=== PATIENT | male | born 1990 | race African-American/Black ===

== ENCOUNTER 2019-10-15 20:34 | Observation (INO) | payer MEDICAID ==
--- NOTE | 2019-10-15 21:51 | ED ---
Influenza-Like Illness - HPI Summary HPI Summary: 29 year old M arriving via private car to [facility] complains of worsening intermittent cough, chest pain, fever, chills, diaphoresis, decreased appetite x2 weeks. Patient states he stayed home Sun 10/09 to 10/11. He was doing better 10/12 and 10/13. Patient states he started doing worse on Thu and today . He vomited last night. He states he coughed pink, frothy sputum today 1600. The patient rates the pain 6/10 in severity. Symptoms aggravated by nothing. Symptoms alleviated by nothing. He has not been around anyone sick. No recent travel. Current smoker. Uses marijuana. No hx IV drug use. Home Medications Medication Instructions Recorded Confirmed Type NK [No Home Medications Reported] 10/16/19 10/16/19 History - History of Current Complaint Chief Complaint: EDUpperRespComplaint Time Seen by Provider: 10/15/19 21:48 Hx Obtained From: Patient Onset/Duration: Lasting Weeks - 2.5, Still Present Severity: Moderate - 6/10 - Allergy/Home Medications Allergies/Adverse Reactions: Allergies Allergy/AdvReac Type Severity Reaction Status Date / Time No Known Allergies Allergy Verified 10/15/19 20:44 Home Medications: Home Medications NK [No Home Medications Reported] 10/16/19 [History Confirmed 10/16/19] PMH/Surg Hx/FS Hx/Imm Hx Cardiovascular History: Denies: Hx Hypertension Psychiatric History: Reports: Hx Substance Abuse - synthetic marijuana - Surgical History Surgical History: None Infectious Disease History: No Infectious Disease History: Denies: Traveled Outside the [place] in Last 30 Days - Family History Known Family History: Positive: Diabetes - grandmother borderline diabetes - Social History Hx Substance Use: Yes Substance Use Type: Reports: Marijuana Hx Tobacco Use: Yes Smoking Status (MU): Current Some Day Smoker Review of Systems Positive: Fever, Chills, Skin Diaphoresis Positive: Chest Pain Positive: Cough Positive: Vomiting, Other - decreased appetite All Other Systems Reviewed And Are Negative: Yes Physical Exam - Summary Physical Exam Summary: Constitutional: Well-developed, Well-nourished, Alert. (-) Distressed Skin: Warm, Dry HENT: Normocephalic; Atraumatic Eyes: Conjunctiva normal Neck: Musculoskeletal ROM normal neck. (-) JVD, (-) Stridor, (-) Nuchal rigidity Cardio: Rhythm regular, tachycardic, Heart sounds normal; Intact distal pulses; Radial pulses are 2+ and symmetric. (-) Murmur Pulmonary/Chest wall: Effort normal. (-) Respiratory distress, (-) Wheezes, bilateral rhonchi, dry cough Abd: Soft, (-) tenderness, (-) Distension, (-) Guarding, (-) Rebound Musculoskeletal: (-) Edema Lymph: (-) Cervical adenopathy Neuro: Alert, Oriented x3 Psych: Mood and affect Normal Triage Information Reviewed: Yes Vital Signs On Initial Exam: Initial Vitals Temp Pulse Resp BP Pulse Ox 101.5 F 101 16 119/77 95 10/15/19 20:42 10/15/19 20:42 10/15/19 20:42 10/15/19 20:42 10/15/19 20:42 Vital Signs Reviewed: Yes Procedures - Sedation Patient Received Moderate/Deep Sedation with Procedure: No Diagnostics - Vital Signs Vital Signs Temp Pulse Resp BP Pulse Ox 10/15/19 20:42 101.5 F 101 16 119/77 95 - Laboratory Result Diagrams: 10/15/19 22:32 10/15/19 22:32 Lab Statement: Any lab studies that have been ordered have been reviewed, and results considered in the medical decision making process. - Radiology CXR Radiology Interpretation Completed By: ED Physician - diffuse air space opacities PENDING OFFICIAL REPORT - CT CHEST CT Interpretation Completed By: Radiologist Summary of CT Findings: IMPRESSION: Multilobar bilateral airspace disease as above likely representing pneumonia. ED physician has reviewed this report. Flu Symptom Course/Dx - Course Course Of Treatment: 29 y/o male p/w cough, fever, feeling unwell. - Flu A+, CXR multiple nodular opacities concerning for multifocal pneumonia. CT confirms multifocal pneumonia. Patient started on ceftriaxone, azithromycin. Tamiflu deferred given chronicity of symptoms. LA normal. Given IVF and tylenol for fever. Regarding CP likely 2/2 PNA, troponin negative x1, EKG non ischemic, heart score: 1. Patient admitted to the hospital. - Diagnoses Provider Diagnoses: Pneumonia, Influenza - Physician Notifications Discussed Care Of Patient With: Grace Mays Time Discussed With Above Provider: 23:04 Instructed by Provider To: Other - Dr. Davon hospitalist agrees to admit patient Discharge ED - Sign-Out/Discharge Documenting (check all that apply): Patient Departure - Discharge Plan Condition: Stable Disposition: ADMITTED TO [facility] Referrals: No Primary Care Phys,NOPCP [Primary Care Provider] - - Billing Disposition and Condition Condition: STABLE Disposition: Admitted to [facility] - Attestation Statements Document Initiated by Nedibe: Yes Documenting Scribe: Myrna Catherine Provider For Whom Randi is Documenting (Include Credential): Karlee Beltran MD Scribe Attestation: Myrna Mejia, scribed for Karlee Beltran MD on 10/16/19 at 0223. Scribe Documentation Reviewed: Yes Provider Attestation: The documentation as recorded by the Myrna miller accurately reflects the service I personally performed and the decisions made by Karlee malagon MD Status of Scribe Document: Viewed
[2019-10-15 22:16] LABS: Influenza B Molecular POSITIVE (Negative)
[2019-10-15] MEDS ORDERED: cefTRIAXone(*) 1 GM in NS 0.9% 50 ML* 50 ML IVPB ONE (22:27)
[2019-10-15] MEDS ORDERED: Azithromycin 500 mg/250 ml NS 500 MG/250 ML BAG IVPB ONE (22:27)
[2019-10-15] MEDS ORDERED: Acetaminophen TAB* 325 MG PO ONE (22:29)
[2019-10-15] MEDS ORDERED: Ketorolac INJ* 30 MG/ML 1 ML VIAL IV ONE (22:29)
[2019-10-15] MEDS ORDERED: NS 0.9% 1000 ML** 1,000 ML IV ONE ×2 (22:29→23:35)
[2019-10-15 22:42] LABS: Hematocrit 40 % (42-52); Hemoglobin 13.8 g/dL (14.0-18.0); Mean Corpuscular HGB Conc 34 g/dL (31-36); Mean Corpuscular Hemoglobin 29 pg (27-31); Mean Corpuscular Volume 84 fL (80-94); Mean Platelet Volume 8.2 fL (7.4-10.4); Platelet Count 259 10^3/uL (150-450); Red Blood Count 4.78 10^6 /uL (4.18-5.48); Red Cell Distribution Width 15 % (10-15); White Blood Count 6.5 10^3/uL (3.5-10.8)
[2019-10-15 22:57] LABS: ABS Lymphocytes 0.4 10^3/ul (1.0-4.8); ABS Monocytes 1.3 10^3/ul (0-0.8); ABS Neutrophils 4.8 10^3/ul (1.5-7.7); Albumin 3.8 g/dL (3.2-5.2); BUN/Creatinine Ratio 7.8 (8-20); Calcium 8.9 mg/dL (8.6-10.3); EGFR African American 89.7 (>60); EGFR Non-African American 74.2 (>60); Eosinophil % 0.1 %; Globulin 3.9 g/dL (2-4); Lymphocyte % 5.5 %; Potassium 3.6 mmol/L (3.5-5.0); Total Bilirubin 0.4 mg/dL (0.2-1.0); Total Protein 7.7 g/dL (6.4-8.9)
[2019-10-16 00:05] LABS: Troponin I 0.01 ng/mL (<0.03)
[2019-10-16] MEDS ORDERED: guaiFENesin 100 mg/5 ml LIQ unit dose cup PO PRN (00:10)
[2019-10-16] MEDS ORDERED: NS 0.9% 1000 ML** 1,000 ML IV SCH (00:15)
[2019-10-16] MEDS ORDERED: PROCHLORPERAZINE INJ 5 MG/ML 2 ML VIAL IV PRN (00:16)
--- NOTE | 2019-10-16 02:02 | HP ---
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 PROVIDER: Fan Broussard NP ATTENDING PHYSICIAN: Dr. Mays.* (DICTATED BY FAN BROUSSARD np) CHIEF COMPLAINT: Shortness of breath and coughing. HISTORY OF PRESENT ILLNESS: This is a 29-year-old male with no significant past medical history, who came to the emergency room on 10/15/19 after experiencing 2 weeks of not feeling well, started with intermittent cough, chest pain, fever, chills, diaphoresis, and decreased appetite. Over the past 2 weeks, he was starting to feel slightly better between 10/12/19 and 10/13/19, then worsened on the next day of 10/14/19. He vomited last night. He has been coughing up pink frothy sputum. He has denied any sick contacts or recent travel; however, he did state that he spends a lot of time in the car up to 100 hours at a time, but has denied having any swelling or tenderness in his legs. In the emergency room, he received 2 L of normal saline and azithromycin and ceftriaxone as well as Tylenol and Toradol for his discomfort. His chest CT was performed, which showed multilobar pneumonia throughout the right lung and the left lower lobe. He also swabbed positive for influenza B. Hospitalists were to evaluate the patient for admission. PAST MEDICAL HISTORY: None. PAST SURGICAL HISTORY: None. HOME MEDICATIONS: None. ALLERGIES: None. FAMILY HISTORY: His grandmother has diabetes. SOCIAL HISTORY: He started smoking about 4 months ago, he smokes about 1 pack every few days. Denies any alcohol use, though he smokes marijuana every day. He did not disclose what he does for work. REVIEW OF SYSTEMS: A 12-point system review was performed, which was positive for chest pain in the upper anterior chest as well as mid back bilaterally around his lower lungs that is worse with coughing and inspiration. He is also positive for chills, cough with frothy pink sputum, diaphoresis, decreased appetite. Denies any abdominal pain. Positive for vomiting. Denies any issues moving his bowel or bladder. PHYSIAL EXAMINATION GENERAL: This is a well-developed young man, seen resting in the bed, in no acute distress. VITAL SIGNS: 100.7 Fahrenheit, 93 pulse, 16 respirations, 93% oxygen on 2 L, and 95/66 blood pressure. HEENT: Conjunctivae pink and moist. PERRLA. EOMs intact. Oropharynx clear. Noted injection into the pharynx. Mucous membranes are slightly dry. NECK: Supple. RESPIRATORY: Lung sounds diminished throughout bilaterally on 2 L of oxygen via nasal cannula. CARDIAC: S1 and S2 present. Heart rate regular. No murmurs, gallops, or rubs appreciated. ABDOMEN: Soft, nontender, nondistended with positive bowel sounds x4. MUSCULOSKELETAL: No clubbing or cyanosis of the digits. No lower extremity edema or tenderness. NEUROLOGIC: Sensation intact to light touch. No focal deficits appreciated. PSYCH: He is alert and oriented x4. Thought content organized. SKIN: Intact with no rashes or open areas. DIAGNOSTIC STUDIES/LAB DATA: Pertinent lab data: Influenza B positive. Sodium 133, chloride 99, BUN and creatinine ratio 7.8, lactic acid 0.7. AST 62 , ALT 59. Troponin 0.01. Hemoglobin 13.8, hematocrit 40. CT scan showed multilobar bilateral airspace disease as above likely representing pneumonia, it states patchy nodular and ground-glass densities are present in all lobes of the right lung and in the left lower lobe with sparing of the left upper lobe, heaviest burden of involvement noted in right upper lobe with coalescent opacity in the lateral segment of the right middle lobe adjacent to the major fissure. No cavitary lesions. Chest x-ray: Awaiting official radiologic read; however, no obvious infiltrates seen. ASSESSMENT AND PLAN: My impression, this is a 29-year-old male with no significant past medical history, who is being admitted on 10/16/19 for sepsis secondary to influenza B and pneumonia. 1. Sepsis secondary to influenza B and pneumonia. According to his history, it sounds as if he initially had a viral infection got better, but then became secondarily infected with pneumonia. He is able to produce some thick yellow sputum, which I will send off for sputum culture. We will also check his urine for legionella and Streptococcus pneumoniae antigens. His sepsis was as evidenced by initial temperature of 101.5 and pulse rate of 101. He already received 2 L of IV fluid. We will continue normal saline at 100. No need to recheck lactic acid as his initial reading was 0.7. We will continue on azithromycin and ceftriaxone, though I will consider bringing in Infectious Disease should he not respond to these. However, due to the presence of pink frothy sputum and recent heavy travels in the car, I am concerned also about the possibility of pulmonary embolism. D-Dimer was mildly elevated at 375. Will not pursue a d-dimer at this time. As far as symptom control goes, I will order guaifenesin for his cough and Tylenol for any discomfort. 2. DVT prophylaxis. He is a low risk, does not require any anticoagulations at this time. We will encourage ambulation. 3. Code status is full code. 4. Condition is guarded. DISPOSITION: To admit OBV to [address] [place] [address]. TIME SPENT: Time spent on the patient is about 60 minutes with 30 of that spent [id number]. FAN BROUSSARD, SENIOR DATA ARCHITECT [id number]/[facility] #: [id number] [facility] DIVISIONKimmy
[2019-10-16] MEDS: Acetaminophen TAB* 325 MG PO PRN ×3 (03:02→20:13)
[2019-10-16 06:04] LABS: ABS Lymphocytes 0.5 10^3/ul (1.0-4.8); ABS Monocytes 1.1 10^3/ul (0-0.8); ABS Neutrophils 5.4 10^3/ul (1.5-7.7); Eosinophil % 0.1 %; Hematocrit 38 % (42-52); Hemoglobin 12.9 g/dL (14.0-18.0); Mean Corpuscular HGB Conc 34 g/dL (31-36); Mean Corpuscular Hemoglobin 29 pg (27-31); Mean Corpuscular Volume 84 fL (80-94); Mean Platelet Volume 8.5 fL (7.4-10.4); Platelet Count 239 10^3/uL (150-450); Red Blood Count 4.52 10^6 /uL (4.18-5.48); Red Cell Distribution Width 15 % (10-15)
[2019-10-16 06:21] LABS: BUN/Creatinine Ratio 10.2 (8-20); Calcium 8.3 mg/dL (8.6-10.3); EGFR African American 107.9 (>60); EGFR Non-African American 89.2 (>60); Potassium 3.8 mmol/L (3.5-5.0)
[2019-10-16] MEDS: Oseltamivir CAP* 75 MG CAP PO SCH ×2 (09:05→20:13)
[2019-10-16] MEDS: guaiFENesin ER TAB 600 MG PO SCH ×2 (09:05→20:13)
--- NOTE | 2019-10-16 14:16 | PN ---
Subjective Date of Service: 10/16/19 Interval History: Patient is feeling very poorly still with productive cough, F/C, slight hemoptysis, muscle aches and chest pain with coughing. Patient denies dizziness , palpitations, abdominal pain, or diarrhea. Family History: Unchanged from Admission Social History: Unchanged from Admission Past Medical History: Unchanged from Admission Objective Active Medications: Acetaminophen (Tylenol Tab*) 650 mg PO Q4H PRN PRN Reason: MILD PAIN or TEMP > 100.4 Last Admin: 10/16/19 09:06 Dose: 650 mg Guaifenesin (Robitussin 100 Mg/5ml Liq) 5 ml PO Q4H PRN PRN Reason: COUGH Guaifenesin (Mucinex*) 600 mg PO BID [facility] Last Admin: 10/16/19 09:05 Dose: 600 mg Azithromycin (Zithromax 500 Mg/250 Ml) 500 mg in 250 mls @ 250 mls/hr IVPB Q24H [facility]ITH Ceftriaxone Sodium 1 gm/ (Sodium Chloride) 50 mls @ 100 mls/hr IVPB Q24H FAIHT Sodium Chloride (Ns 0.9% 1000 Ml) 1,000 mls @ 100 mls/hr IV PER RATE FAITH Oseltamivir Phosphate (Tamiflu Cap*) 75 mg PO BID [facility] Stop: 10/20/19 21:01 Last Admin: 10/16/19 09:05 Dose: 75 mg Prochlorperazine Edisylate (Compazine Inj*) 5 mg IV Q6H PRN PRN Reason: NAUSEA/VOMITING Vital Signs - 8 hr 10/16/19 10/16/19 07:15 11:11 Temperature 101.2 F 99.2 F Pulse Rate 106 84 Respiratory 18 18 Rate Blood Pressure 113/65 124/54 (mmHg) O2 Sat by Pulse 95 100 Oximetry Oxygen Devices in Use Now: Nasal Cannula Appearance: Patient is a 29yo male who appears stated age and is sitting in the bed in [facility]. Eyes: No Scleral Icterus, PERRLA Ears/Nose/Mouth/Throat: NL Teeth, Lips, Gums, Clear Oropharnyx, Mucous Membranes Moist Neck: NL Appearance and Movements; NL JVP, Trachea Midline Respiratory: Symmetrical Chest Expansion and Respiratory Effort, Clear to Auscultation Cardiovascular: NL Sounds; No Murmurs; No JVD, No Edema, - - Tachycardia Abdominal: NL Sounds; No Tenderness; No Distention, No Hepatosplenomegaly Lymphatic: No Cervical Adenopathy Extremities: No Edema, No Clubbing, Cyanosis Skin: No Rash or Ulcers, No Nodules or Sclerosis Neurological: Alert and Oriented x 3, NL Sensation, NL Muscle Strength and Tone , - - CN II-XII intact. Result Diagrams: 10/16/19 05:41 10/16/19 05:41 Microbiology and Other Data: Microbiology 10/16/19 05:50 Gram Stain - Final Sputum Expectorated 10/16/19 05:50 Legionella Urinary Antigen - Final Urine Negative Legionella Antigen Streptococcus pneumoniae Ag Screen - Final Negative S. pneumo Antigen Assess/Plan/Problems-Billing Assessment: Patient is a 29yo male with no PMH who is admitted with flu and bacterial superinfection. Improving slowly on antibiotics. - Patient Problems (1) Acute respiratory failure with hypoxia Current Visit: Yes Status: Acute Code(s): J96.01 - ACUTE RESPIRATORY FAILURE WITH HYPOXIA SNOMED Code(s): 44318989 Comment: - Initially requiring O2 to keep SpO2>90. - Due to Flu and Pneumonia (2) Community acquired bacterial pneumonia Current Visit: Yes Status: Acute Code(s): J15.9 - UNSPECIFIED BACTERIAL PNEUMONIA SNOMED Code(s): 402557677 Comment: - Bacterial superinfection on Influenza - Improving on Ceftriaxone and Azithromycin (3) Influenza A Current Visit: Yes Status: Acute Code(s): J10.1 - FLU DUE TO OTH IDENT INFLUENZA VIRUS W OTH RESP MANIFEST SNOMED Code(s): 557240856 Comment: - Continue Tamiflu (4) DVT prophylaxis Current Visit: Yes Status: Acute Code(s): Z29.9 - ENCOUNTER FOR PROPHYLACTIC MEASURES, UNSPECIFIED SNOMED Code(s): 664243519 Comment: - Low risk, ambulation (5) Full code status Current Visit: Yes Status: Acute Code(s): Z78.9 - OTHER SPECIFIED HEALTH STATUS SNOMED Code(s): 551541776 Status and Disposition: Observation, hopeful D/C tomorrow.
[2019-10-16] MEDS ORDERED: Azithromycin 500 mg/250 ml NS 500 MG/250 ML BAG IVPB SCH (22:00)
[2019-10-16] MEDS ORDERED: cefTRIAXone(*) 1 GM in NS 0.9% 50 ML* 50 ML IVPB SCH (23:00)
[2019-10-17 04:19] VITALS: BP 120/60
[2019-10-17] MEDS: guaiFENesin ER TAB 600 MG PO SCH (09:47)
[2019-10-17] MEDS: Oseltamivir CAP* 75 MG CAP PO SCH (09:47)
--- NOTE | 2019-10-17 21:45 | DS ---
CC: [facility] * DISCHARGE SUMMARY: DATE OF ADMISSION: 10/15/19 DATE OF DISCHARGE: 10/17/19 PRIMARY CARE PROVIDER: [facility]. MY ATTENDING WHILE IN THE HOSPITAL: Dr. Surinder Mao.* (DICTATED BY ETELVINA ROGEL) PRIMARY DISCHARGE DIAGNOSES: 1. Influenza B. 2. Bacterial superinfection due to the above. 3. Sepsis, resolved. 4. Acute hypoxic respiratory failure, resolved. SECONDARY DIAGNOSIS: None. MEDICATIONS AT DISCHARGE: 1. Tylenol 650 mg p.o. q.4 hours as needed. 2. Azithromycin 250 mg p.o. daily x2 doses. 3. Cefdinir 300 mg p.o. b.i.d. x8 doses. 4. Guaifenesin 600 p.o. b.i.d. 5. Oseltamivir 75 mg p.o. b.i.d. x6 doses. 6. Benzonatate 100 mg p.o. t.i.d. as needed for cough. NEW MEDICATION AT DISCHARGE: All. STUDIES: Chest x-ray from 10/15/19 read as multifocal patchy densities, worse on the right than the left. The broad differential includes multifocal infectious pneumonia, septic emboli, acute allergic pneumonitis depending on the patient's recent clinical history. Chest CT from 10/15/19 read as multi-level bilateral airspace disease likely representing pneumonia. Venous Doppler study showed no lower extremity DVT. HOSPITAL COURSE: This is a brief summary of the patient's presentation. For more details, please see history and physical from Bette Ny NP on . In brief, the patient is a 29-year-old male with past medical history significant for the above, who had presented after 2 weeks of not feeling well with the patient starting to feel better 2 days before his admission, but then began to feel much worse with cough, subjective fevers, severe shortness of breath. The patient came into the emergency department, was found to be hypoxic with studies as above. The patient was febrile, the patient did not have an elevated white blood cell count, but was markedly tachycardic. The patient was not initially hypotensive, the patient felt somewhat better with fluids and his heart rate improved. The patient was started on ceftriaxone, azithromycin and Tamiflu. The patient improved on these. The patient was able to be weaned off of oxygen on 10/17/19. The patient had a slightly elevated AST and ALT symmetrically upon presentation likely related to his Influenza. The patient had elevated D-dimer of unclear clinical significance given the ____ __ with the patient's improvement without anticoagulation and his likely alternative explanation for shortness of breath, hypoxia and elevated D-dimer, a CT of the chest was not performed. The patient was stable and amenable for discharge on 10/17/19. PHYSICAL EXAMINATION ON THE DAY OF DISCHARGE: General: The patient is an 29- year- old male, appears stated age and sitting comfortably in bed, in no acute distress. Vital Signs: At the time of evaluation, temperature 99.3, pulse rate 90, respiratory rate 20, oxygen saturation 97% on room air, blood pressure 120/ 66. HEENT: Normocephalic, atraumatic. Sclerae anicteric. No conjunctival injection. Nasal mucosa moist. Oral mucosa moist. No pharyngeal erythema, discharge or exudate. Neck: Supple, nontender. No lymphadenopathy. No carotid bruits auscultated. No JVDs. Cardiac: Regular rate and rhythm. No clicks, murmurs, gallops, or rubs. Pulses 2+ in bilateral dorsalis pedis, posterior tibialis, and radial areas. Respiratory: Rhonchi heard in bilateral lower lobes. No adventitious lung sounds. Good air exchange bilaterally. Abdomen: Soft, nontender, and nondistended. Bowel sounds present, normoactive in all 4 quadrants. No hepatosplenomegaly. No abdominal bruits auscultated. No hepatojugular reflux. Genitourinary: No suprapubic or CVA tenderness. Skin : Clean, dry, and intact. No rashes. Neuro: Cranial nerves II through XII intact. Alert and oriented x3. Psychiatric: Pleasant, cooperative, sometimes irritable. DISCHARGE PLAN BY PROBLEM: 1. Influenza B, bacterial pneumonia, likely superinfection, acute hypoxic respiratory failure, sepsis. The patient likely developed Influenza B, from which he was getting better and then developed a bacterial pneumonia on top of this. The patient has no compelling evidence for pulmonary embolism or alternative explanation. The patient is improving on antibiotics. The patient had negative blood cultures. The patient will be continued on 2 days of azithromycin and 4 days of Ceftin as above as well as 3 more days of oseltamivir. The patient was no longer hypoxic and was feeling better on the day of discharge. 2. Disposition. Home. 3. Condition. Stable. TIME SPENT: Approximately 30 minutes was spent on this patient's discharge, 20 of which was spent [id number] with the patient obtaining history and physical and discussing treatment plan. ETELVINA ROGEL [id number]/[facility] #: [id number] [facility]
== END 2019-10-17 10:40 | disposition home or self-care (01) ==
LOC: ED 20:34 → MED 10-16 00:11
PROVIDERS: ADMIT Student in an Organized Health Care Education/Training Program; ATTEND Internal Medicine
DX: J10.1 Influenza due to other identified influenza virus with other respiratory manifestations (principal); A41.9 Sepsis, unspecified organism; J15.9 Unspecified bacterial pneumonia; B96.89 Other specified bacterial agents as the cause of diseases classified elsewhere; J96.01 Acute respiratory failure with hypoxia; Z79.899 Other long term (current) drug therapy; F17.210 Nicotine dependence, cigarettes, uncomplicated; R94.31 Abnormal electrocardiogram [ECG] [EKG]; R07.9 Chest pain, unspecified
CPT/HCPCS: 36415; 71046; 71250; 80048; 80053; 83605; 84484; 85025; 85379; 87040; 87070; 87205; 87899; 93005; 93970; 96365; 96366; 96367; 96375; 99285; A9270-GY; G0378; J0456; J0696; J1885